=== PATIENT | male | born 1960 | race Caucasian/White ===

== ENCOUNTER 2024-05-20 11:49 | Emergency (ER) | payer MEDICAID, SELFPAY ==
[2024-05-20 12:05] VITALS: BP 154/83; PULSE 115; RESP 18; TEMP 36.5; O2SAT 95
--- NOTE | 2024-05-20 12:39 | XRR_ITS ---
PROCEDURE INFORMATION: Exam: XR Chest Exam date and time: 05/20/2024 1:32 PM Age: 63 years old Clinical indication: Cough and shortness of breath TECHNIQUE: Imaging protocol: Radiologic exam of the chest. Views: 1 view. COMPARISON: No relevant prior studies available. FINDINGS: Lungs: Patchy infiltrate is seen in the right lateral lung base concerning for infiltrate. Pleural spaces: Unremarkable. No pleural effusion. No pneumothorax. Heart/Mediastinum: Unremarkable. No cardiomegaly. Bones/joints: Unremarkable. XR/XR chest 1V portable [id number] IMPRESSION: Patchy infiltrate is seen in the right lateral lung base concerning for infiltrate. The chest x-ray is otherwise unremarkable.
[2024-05-20 13:04] LABS: Influenza A NEGATIVE (Negative); Influenza B NEGATIVE (Negative); Respiratory Syncytial Virus Ce NEGATIVE (Negative); SARS-CoV-2 PCR NEGATIVE (Negative)
[2024-05-20 15:55] LABS: Basophils % 0.5 %; Eosinophils % 0.3 %; Hematocrit 38.9 % (37-53); Lymphocytes # 1.2 10^3/uL (0.8-4.8); Lymphocytes % 15.9 %; Mean Corpuscular HGB Conc 33.2 g/dL (30-55); Mean Corpuscular Hemoglobin 31.5 pg (27-33); Mean Corpuscular Volume 95.1 fl (82-101); Mean Platelet Volume 9.3 fL (7.4-10.4); Monocytes # 0.8 10^3/uL (0.2-0.9); Monocytes % 10.6 %; Neutrophils # 5.38 10^3/uL (1.8-7.7); Neutrophils % 72.3 %; Nucleated Red Blood Cells % 0 %; Platelet Count 195 10^3/cmm (157-399); Red Blood Count 4.09 10^6/uL (3.85-5.65); Red Cell Distribution Width 12.7 % (12.1-15.1); White Blood Count 7.44 10^3/uL (3.29-11.43)
[2024-05-20 16:16] LABS: Alanine Aminotransferase 8 U/L (0-41); Albumin Level 3.6 g/dL (3.5-5.2); Alkaline Phosphatase 76 U/L (40-130); Anion Gap 18.9 (5-19); Aspartate Amino Transferase 15 U/L (0-40); Blood Urea Nitrogen 9 mg/dL (8-23); Calcium 8.8 mg/dL (8.5-10.5); Carbon Dioxide 24 mmol/L (22-29); Chloride 93 mmol/L (98-107); Globulin 4.2 g/dL (1.3-4.6); Glomerular Filtration Rate 75.2 mL/min (90-130); Glucose 104 mg/dL (65-115); Osmolality Calculated 273 mOsm/kg (285-295); Potassium 3.9 mmol/L (3.5-5.1); Sodium 132 mmol/L (136-145); Total Bilirubin 0.5 mg/dL (0.15-1.2); Total Protein 7.8 g/dL (6.6-8.7)
[2024-05-20 16:17] LABS: Lactic Sepsis W/Reflex 2.7 mmol/L (0.5-2.2)
--- NOTE | 2024-05-20 16:41 | ED_ITS ---
HPI - URI/Sore Throat 2 General: Chief Complaint: Upper Respiratory Infection Stated Complaint: cough/congestion x3 weeks Time Seen by Provider: 05/20/24 16:37 History of Present Illness: Patient presents to the ER with complaints of being sick for the last 3 weeks. He says been coughing congested and rundown which Getting worse until he decided to come in today. Patient is an avid smoker but has not smoked any cigarettes today due to his shortness of breath. Patient is normally does not have any breathing problems per him, does not use oxygen anytime, upon arrival patient a pulse of 115 bpm with O2 sat of 95% on room air. Related Data Previous Rx's ?Medication ?Instructions ?Recorded albuterol sulfate 90 mcg/actuation 2 inh inhalation QI D PRN shortness 05/20/24 aerosol inhaler (Ventolin HFA) of breath or wheezing # 6.7 grams cefdinir 300 mg capsule 300 mg PO BID 10 days #20 ca ps 05/20/24 Allergies Allergy/AdvReac Type Severity Reaction Status Date / Time No Known Allergies Allergy Verified 05/20/24 12:08 Review of Systems 2 General: Reports: 10 or more systems reviewed and unremarkable except in HPI and below Physical Exam 2 Const: COMMON NORMALS: no acute distress, average body habitus, patient oriented x3, no limitations, healthy appearing, alert and well nourished HENMT: COMMON NORMALS: normocephalic, atraumatic, hearing grossly normal bilaterally, external ears normal, Normal external nose present, moist oral mucous membranes and oropharynx normal HEAD & SCALP: normocephalic and atraumatic NOSE: Normal external nose present EXTERNAL EAR: Yes external ears normal Neck/C-Spine: COMMON NORMALS: full ROM, no lymphadenopathy, supple, no meningeal signs, no JVD and Thyroid normal THYROID: Thyroid normal Chest: COMMONS NORMALS: normal inspection of the chest and normal palpation of entire chest wall Resp: COMMON NORMALS: normal respiratory effort, No retractions and No use of accessory muscles; negative for clear to auscultation bilaterally (Mild diffuse rhonchi and wheezing) AUSCULTATION: not clear to auscultation bilaterally (Mild diffuse rhonchi and wheezing) Cardio: COMMON NORMALS: no JVD, regular rate (Mildly tachycardic), regular rhythm, S1 normal heart sound present, S2 normal heart sound present, No gallops present (Cardio), No clicks present (Cardio), No murmurs present (Cardio) and No rub (Cardio) RATE: regular rate (Mildly tachycardic) RHYTHM: regular rhythm HEART SOUNDS: S1 normal heart sound present and S2 normal heart sound present GI: COMMON NORMALS: Normal to inspection, nondistended, normoactive bowel sounds present, Soft to palpation, non-tender, No hepatosplenomegaly present and no masses PALPATION: Yes Soft to palpation and Yes No hepatosplenomegaly present Neuro: COMMON NORMALS: patient oriented x3 SENSORIUM/ORIENTATION: Yes alert MENINGEAL SIGNS: Yes no meningeal signs Course 2 Vital Signs: Vital signs: Vital Signs Temperature 97.7 F 05/20/24 12:05 Pulse Rate 83 05/20/24 20:28 Respiratory Rate 16 05/20/24 20:28 Blood Pressure 125/79 05/20/24 20:28 Pulse Oximetry 93 05/20/24 20:28 Oxygen Delivery Me thod Room Air 05/20/24 16:53 MDM - URI/Sore Throat Medical Decision Making Patient's O2 sat is 95% on room air. He does have diffuse wheezing and rhonchi mild, white count is normal 7.44, BUN/creatinine 9/1.0, chest x-ray showed patchy infiltrate in the right lateral lung base concerning for infiltrate, patient is COVID influenza and RSV negative, lactic acid is positive at 2.7. Patient was given a sepsis bolus here of approximately 2100 cc, 3.375 g of Zosyn and 1 DuoNeb patient's heart rate came down to 83 beats a minute, blood pressure improved down to 125/79, patient be discharged home. Medical Records I reviewed the patient's medical records. Lab Data I reviewed the patient's lab results. 05/20/24 15:39 05/20/24 15:39 Radiology Impressions Chest X-Ray 05/20/24 12:39 IMPRESSION: Patchy infiltrate is seen in the right lateral lung base concerning for infiltrate. The chest x-ray is otherwise unremarkable. Laboratory Results WBC 7.44 10^3/uL (3.29-11.43) 05/20/24 15:39 RBC 4.09 10^6/uL (3.85-5.65) 05/20/24 15:39 Hgb 12.90 g/dL (11.27-16.99) 05/20/24 15:39 Hct 38.9 % (37-53) 05/20/24 15:39 MCV 95.1 fl (82-101) 05/20/24 15:39 MCH 31.5 pg (27-33) 05/20/24 15:39 MCHC 33.2 g/dL (30-55) 05/20/24 15:39 RDW 12.7 % (12.1-15.1) 05/20/24 15:39 Plt Count 195 10^3/cmm (157-399) 05/20/24 15:39 MPV 9.3 fL (7.4-10.4) 05/20/24 15:39 Neut % (Auto) 72.3 % 05/20/24 15:39 Lymph % (Auto) 15.9 % 05/20/24 15:39 Brooks % (Auto) 10.6 % 05/20/24 15:39 Eos % (Auto) 0.3 % 05/20/24 15:39 Baso % (Auto) 0.5 % 05/20/24 15:39 Neut # (Auto) 5.38 10^3/uL (1.8-7.7) 05/20/24 15:39 Lymph # (Auto) 1.2 10^3/uL (0.8-4.8) 05/20/24 15:39 Brooks # (Auto) 0.8 10^3/uL (0.2-0.9) 05/20/24 15:39 Eos # (Auto) 0.0 10^3/uL (0.0-0.8) 05/20/24 15:39 Baso # (Auto) 0.0 10^3/uL (0.0-0.1) 05/20/24 15:39 Nucleated RBC % (auto) 0 % 05/20/24 15:39 Nucleated RBCs # 0.0 /100WBC 05/20/24 15:39 Sodium 132 mmol/L (136-145) L 05/20/24 15:39 Potassium 3.9 mmol/L (3.5-5.1) 05/20/24 15:39 Chloride 93 mmol/L (98-107) L 05/20/24 15:39 Carbon Dioxide 24 mmol/L (22-29) 05/20/24 15:39 Anion Gap 18.9 (5-19) 05/20/24 15:39 BUN 9 mg/dL (8-23) 05/20/24 15:39 Creatinine 1.0 mg/dL (0.7-1.2) 05/20/24 15:39 GFR Calculation 75.2 mL/min (90-130) L 05/20/24 15:39 Glucose 104 mg/dL (65-115) 05/20/24 15:39 Calculated Osmolality 273 mOsm/kg (285-295) L 05/20/24 15:39 Lactic Acid 2.7 mmol/L (0.5-2.2) H 05/20/24 15:39 Lactic Acid (Sepsis) 1.8 mmol/L (0.5-2.2) 05/20/24 20:22 Calcium 8.8 mg/dL (8.5-10.5) 05/20/24 15:39 Total Bilirubin 0.5 mg/dL (0.15-1.2) 05/20/24 15:39 AST 15 U/L (0-40) 05/20/24 15:39 ALT 8 U/L (0-41) 05/20/24 15:39 Alkaline Phosphatase 76 U/L (40-130) 05/20/24 15:39 Total Protein 7.8 g/dL (6.6-8.7) 05/20/24 15:39 Albumin 3.6 g/dL (3.5-5.2) 05/20/24 15:39 Globulin 4.2 g/dL (1.3-4.6) 05/20/24 15:39 Coronavirus (PCR) Negative (Negative) 05/20/24 12:05 Influenza A (PCR) Negative (Negative) 05/20/24 12:05 Influenza Type B (PCR) Negative (Negative) 05/20/24 12:05 RSV (PCR) Negative (Negative) 05/20/24 12:05 All radiology interpretation(s) finalized by discharge Discharge Plan Discharge Patient Disposition: Home Clinical Impression: Pneumonia Qualifiers: Pneumonia type: due to unspecified organism Laterality: right Lung location: u nspecified part of lung Qualified Code(s): J18.9 - Pneumonia, unspecified organism Condition: Stable Prescriptions: New cefdinir 300 mg capsule 300 mg PO BID 10 Days Qty: 20 0RF albuterol sulfate [Ventolin HFA] 90 mcg/actuation HFA aerosol inhaler 2 inh inhalation QID PRN (Reason: shortness of breath or wheezing) Qty: 6.7 0RF Discharge Orders: Discharge ED (Routine); Ordered 05/20/24 Ordered By: Alex Fontana Referrals: Diogenes Palencia DO [Primary Care Provider] - 1 week Patient Instructions: Pneumonia (ED) Activity Restrictions/Additional Instructions: Your evaluation ER showed you have a right sided pneumonia. Your heart rate decreased when we gave you fluid in your IV, you are given a DuoNeb breathing treatment and Zosyn as an antibiotic. An antibiotic has been called into the pharmacy called cefdinir as well as an inhaler called albuterol. Please pick up driver these medicines and take these as directed. Please follow-up with your family practice physician within the next 7 days for further evaluation and treatment. Print Language: Nepali Coding Level of Care Code ED [facility]aculturist for Ronnie Griffin
[2024-05-20] MEDS: ipratropium-albuterol 3 mL Neb INHALATION (16:49)
[2024-05-20 16:53] VITALS: PULSE 77; RESP 18; O2SAT 97
[2024-05-20] MEDS: sodium chloride 0.9% 2,177.25 ML 2177.25 ML IV (17:03)
[2024-05-20] MEDS: piperacillin-tazobactam 3.375 GM in sodium chloride 0.9% (plus) 50 ML IV (17:03)
[2024-05-20 17:38] LABS: Reflex Lactate Order REFLEX LACTIC ORDERD
[2024-05-20 18:07] VITALS: BP 106/72; PULSE 86; O2SAT 93
[2024-05-20 19:34] VITALS: BP 115/82; PULSE 82; RESP 18; O2SAT 93
[2024-05-20 20:28] VITALS: BP 125/79; PULSE 83; RESP 16; O2SAT 93
[2024-05-20 20:51] LABS: Lactic Acid level (Lactate) 1.8 mmol/L (0.5-2.2)
[2024-05-20 21:06] VITALS: BP 136/90; PULSE 92; RESP 16; O2SAT 94
== END 2024-05-20 21:18 | disposition home or self-care (01) ==
PROVIDERS: Family Medicine; Emergency Provider Emergency Medicine; PCP Family Medicine
DX: J18.9 Pneumonia, unspecified organism (principal); Z11.52 Encounter for screening for COVID-19
CPT/HCPCS: 36415; 71045; 80053; 83605; 85025; 87637; 94640; 96365; 96366; 99284; J2543; J7030